=== PATIENT | male | born 1970 | race African-American/Black ===

== ENCOUNTER 2019-01-28 05:55 | Inpatient (IN) | payer OTHER ==
[2019-01-24 16:51] VITALS: BMI 37.7
[2019-01-28] MEDS ORDERED: CEFAZOLIN 3 GM in DEXTROSE 5%-WATER 100 ML IVPB ONE (06:27)
[2019-01-28] MEDS ORDERED: ROPIVICAINE 0.2%/MORPH PF/KETOROLAC - 51ML DISP.SYRINGE IA ONE ×2 (06:28→10:44)
[2019-01-28] MEDS ORDERED: TRANEXAMIC ACID 1000 MG/10 ML VIAL IVPUSH ONE (06:28)
[2019-01-28] MEDS ORDERED: DEXAMETHASONE SOD PHOSPHATE/PF 10 MG/ML SDV ONE (06:48)
[2019-01-28] MEDS ORDERED: BUPIVACAINE HCL/PF (5 MG/ML) 30 ML VIAL IJ ONE (06:48)
[2019-01-28] MEDS ORDERED: MIDAZOLAM HCL 2 MG/2 ML SINGLE DOSE VIAL ONE ×3 (06:48→09:09)
[2019-01-28] MEDS ORDERED: ePHEDrine SULFATE 50 MG/1 ML AMPULE ONE (06:55)
[2019-01-28] MEDS ORDERED: SUCCINYLCHOLINE CHLORIDE 200 MG/10 ML VIAL ONE (06:56)
[2019-01-28] MEDS ORDERED: PROPOFOL 20 ML ONE ×4 (06:56)
[2019-01-28] MEDS ORDERED: BUPIVACAINE HCL/PF 0.5% (5MG/ML) 10 ML VIAL ONE (06:59)
[2019-01-28] MEDS: oxyCODONE HCL 10 MG SUSTAINED ACTING TABLET PO ONE (07:10)
[2019-01-28] MEDS: CELECOXIB 200 MG CAPSULE PO ONE (07:10)
[2019-01-28] MEDS: GABAPENTIN 300 MG CAPSULE (FP) PO ONE (07:10)
[2019-01-28] MEDS: PANTOPRAZOLE 40 MG TABLET (FP) PO ONE (07:10)
[2019-01-28] MEDS ORDERED: VANCOMYCIN 1,000 MG VIAL (RESTRICTED TO ID ONLY) ONE (07:29)
[2019-01-28] MEDS ORDERED: ceFAZolin SODIUM 1 GM VIAL ONE (07:29)
--- NOTE | 2019-01-28 07:39 | HP ---
Admitting History and Physical - Admission Chief Complaint: left hip osteoarthritis x years History of Present Illness: 48 year old male presents in regard to his left hip. Longstanding history of left hip osteoarthritis. Patient complains of pain, limited ROM, difficulty ambulating and difficulty completing ADLs. Patient has failed conservative treatment measures including PO medications, injections, exercise programs and activity modification. At this point, patient wishes to proceed with surgical intervention, a left total hip arthroplasty - MAKOplasty. History Source: Patient - Past Medical History Cardiovascular: Yes: HTN ENT: Yes: Other (Hay fever) - Past Surgical History Additional Past Surgical History: See written history & physical. - Smoking History Smoking history: Former smoker Have you smoked in the past 12 months: No If you are a former smoker, when did you quit?: 2005 - Alcohol/Substance Use Hx Alcohol Use: Yes (OCCASIONALLY) Home Medications - Allergies Allergies/Adverse Reactions: Allergies Allergy/AdvReac Type Severity Reaction Status Date / Time No Known Allergies Allergy Verified 01/24/19 16:38 - Home Medications Home Medications: Ambulatory Orders Amlodipine Besylate 10 mg PO DAILY 01/24/19 Lisinopril [Zestril] 40 mg PO DAILY 01/24/19 Multivitamin/Iron/Folic Acid [Centrum Adults Tablet] 1 each PO DAILY 01/24/19 Montelukast Na [Singulair -] 10 mg PO DAILY 01/28/19 Review of Systems - Review of Systems Musculoskeletal: reports: Decreased ROM (left hip), Joint Pain (left hip) Physical Examination Vital Signs: Vital Signs Temperature 98.1 F 01/28/19 06:52 Pulse Rate 70 01/28/19 06:52 Respiratory Rate 18 01/28/19 06:52 Blood Pressure 144/88 01/28/19 06:52 O2 Sat by Pulse Oximetry (%) 97 01/28/19 07:18 Constitutional: Yes: Well Nourished, No Distress Eyes: Yes: Conjunctiva Clear HENT: Yes: Atraumatic, Normocephalic Neck: Yes: Supple Cardiovascular: Yes: Regular Rate and Rhythm Respiratory: Yes: Regular Gastrointestinal: Yes: Soft ...Rectal Exam: Yes: Deferred Musculoskeletal: Yes: Joint Stiffness (left hip) Assessment/Plan 48 year old male presents in regard to his left hip. Longstanding history of left hip osteoarthritis. Patient complains of pain, limited ROM, difficulty ambulating and difficulty completing ADLs. Patient has failed conservative treatment measures including PO medications, injections, exercise programs and activity modification. At this point, patient wishes to proceed with surgical intervention, a left total hip arthroplasty - MAKOplasty. Pros, cons, risks benefits and alternatives of a left total hip arthroplasty, MAKOplasty were discussed with the patient at length. Patient confirms their understanding and consents to proceed with a left total hip arthroplasty, MAKOplasty.
[2019-01-28] MEDS ORDERED: KETAMINE HCL 200 MG/20 ML VIAL ONE (09:12)
[2019-01-28] MEDS ORDERED: ONDANSETRON 4 MG/2 ML VIAL IVPUSH PRN ×2 (10:38→12:35)
[2019-01-28] MEDS ORDERED: oxyCODONE HCL 5 MG TABLET PO PRN ×2 (10:41)
[2019-01-28] MEDS ORDERED: TRANEXAMIC ACID 1000 MG/10 ML VIAL IVPB ONE (10:44)
[2019-01-28] MEDS ORDERED: VANCOMYCIN 1,000 MG VIAL (RESTRICTED TO ID ONLY) IVPB ONE (10:45)
[2019-01-28] MEDS ORDERED: TRANEXAMIC ACID 1000 MG/10 ML VIAL ONE (11:43)
[2019-01-28] MEDS ORDERED: DEXAMETHASONE SOD PHOSPHATE 4 MG/1 ML VIAL ONE (11:43)
[2019-01-28] MEDS ORDERED: ONDANSETRON 4 MG/2 ML VIAL ONE (11:43)
--- NOTE | 2019-01-28 12:30 | OP ---
Operative Note - Note: Pre-Operative Diagnosis: Left hip OA Operation: left RIKKI TADEO Post-Operative Diagnosis: Same as Pre-op Surgeon: Ramy Lindsey Crepe Box Tender: Vernell Cummins Anesthesia: Spinal Estimated Blood Loss (mls): 200
[2019-01-28] MEDS ORDERED: KETOROLAC TROMETHAMINE 30 MG/1 ML VIAL ONE (12:31)
[2019-01-28] MEDS ORDERED: traMADol HCL 50 MG TABLET ONE (12:31)
[2019-01-28] MEDS ORDERED: ACETAMINOPHEN INJECTION 100 ML IVPB ONE (12:32)
[2019-01-28] MEDS ORDERED: MAG HYDROX/AL HYDROX/SIMETH 30 ML UNIT-DOSE CUP PO PRN (12:35)
[2019-01-28] MEDS ORDERED: MAGNESIUM HYDROX 2400MG/30ML ORAL SUSPENSION 30 ML CUP PO PRN (12:35)
[2019-01-28] MEDS: ACETAMINOPHEN 1000 MG/100 ML VIAL (NON FORMULARY) IVPB ONE (12:41)
[2019-01-28] MEDS ORDERED: LACTATED RINGERS SOLUTION 1,000 ML IV SCH (12:45)
[2019-01-28] MEDS: traMADol HCL 50 MG TABLET PO SCH ×3 (12:46→18:25)
[2019-01-28] MEDS: KETOROLAC TROMETHAMINE 30 MG/1 ML VIAL IVPUSH SCH ×3 (12:50→18:28)
[2019-01-28] MEDS: CEFAZOLIN 2 GM/D5W 2 GM/50 ML ML IVPB SCH (17:19)
[2019-01-28] MEDS: ACETAMINOPHEN 325 MG TABLET (FP) PO SCH ×3 (18:21→23:21)
[2019-01-28] MEDS ORDERED: DEXAMETHASONE SOD PHOSPHATE 10 MG/1 ML VIAL IVPB ONE (20:00)
[2019-01-28] MEDS: SENNOSIDES/DOCUSATE COMBO (SENNA PLUS) TABLET (UD) PO SCH (21:28)
[2019-01-28] MEDS: CELECOXIB 200 MG CAPSULE PO SCH (21:28)
[2019-01-28] MEDS: ASCORBIC ACID 500 MG TABLET (FP) PO SCH (21:28)
[2019-01-28] MEDS: GABAPENTIN 300 MG CAPSULE (FP) PO SCH (21:28)
[2019-01-28] MEDS: oxyCODONE HCL 10 MG SUSTAINED ACTING TABLET PO SCH (21:28)
[2019-01-29] MEDS: traMADol HCL 50 MG TABLET PO SCH ×6 (00:15→23:50)
[2019-01-29] MEDS: KETOROLAC TROMETHAMINE 30 MG/1 ML VIAL IVPUSH SCH ×3 (00:16→08:00)
[2019-01-29] MEDS: CEFAZOLIN 2 GM/D5W 2 GM/50 ML ML IVPB SCH (01:58)
[2019-01-29] MEDS: ACETAMINOPHEN 325 MG TABLET (FP) PO SCH ×5 (06:25→23:49)
[2019-01-29] MEDS: CELECOXIB 200 MG CAPSULE PO ONE (07:58)
[2019-01-29] MEDS: GABAPENTIN 300 MG CAPSULE (FP) PO ONE (07:58)
[2019-01-29] MEDS: oxyCODONE HCL 10 MG SUSTAINED ACTING TABLET PO ONE (07:58)
[2019-01-29] MEDS: LACTATED RINGERS SOLUTION 1,000 ML IV SCH ×2 (07:59→12:26)
[2019-01-29] MEDS: PANTOPRAZOLE 40 MG TABLET (FP) PO ONE (07:59)
[2019-01-29] MEDS: ACETAMINOPHEN 1000 MG/100 ML VIAL (NON FORMULARY) IVPB ONE (08:00)
[2019-01-29] MEDS: ASPIRIN 325 MG TABLET PO SCH (08:50)
[2019-01-29 09:03] LABS: CALCIUM 8.6 mg/dl (8.5-10); POTASSIUM 3.8 mmol/L (3.5-5.1)
[2019-01-29] MEDS: CELECOXIB 200 MG CAPSULE PO SCH ×2 (09:57→21:35)
[2019-01-29] MEDS: GABAPENTIN 300 MG CAPSULE (FP) PO SCH ×2 (09:58→21:35)
[2019-01-29] MEDS: MULTIVITAMINS (DAILY MVI) TABLET (FP) PO SCH (09:58)
[2019-01-29] MEDS: ASCORBIC ACID 500 MG TABLET (FP) PO SCH ×2 (09:58→21:39)
[2019-01-29] MEDS: PANTOPRAZOLE 40 MG TABLET (FP) PO SCH (09:58)
[2019-01-29] MEDS: MONTELUKAST NA 10 MG TABLET PO SCH (09:59)
[2019-01-29] MEDS: SENNOSIDES/DOCUSATE COMBO (SENNA PLUS) TABLET (UD) PO SCH ×2 (09:59→21:39)
[2019-01-29] MEDS: oxyCODONE HCL 10 MG SUSTAINED ACTING TABLET PO SCH ×2 (10:01→21:35)
[2019-01-29] MEDS: amLODIPine BESYLATE 10 MG TABLET (FP) PO SCH (10:03)
[2019-01-29] MEDS: LISINOPRIL 20 MG TABLET (FP) PO SCH (10:04)
[2019-01-29 10:15] LABS: HEMOGLOBIN 11.8 GM/dL (11.7-16.9); MCH 30.4 pg (25.7-33.7); MCHC 32.8 g/dl (32.0-35.9); MEAN CELL VOLUME 92.7 fl (80-96); MEAN PLT VOLUME 8.4 fl (7.5-11.1); PLATELET COUNT 278 K/MM3 (134-434); RBC 3.89 M/mm3 (4.00-5.60); RDW 14.1 % (11.9-15.9); WHITE BLOOD COUNT 14.2 K/mm3 (4.0-10.0)
--- NOTE | 2019-01-29 15:08 | PN ---
Progress Note, Physician Chief Complaint: s/p left TADEO RIKKI under spinal anesthesia History of Present Illness: post op day one paravertebral block for post op pain control - Current Medication List Current Medications: Active Medications Acetaminophen (Tylenol -) 650 mg PO Q6H [facility] Stop: 01/31/19 11:59 Last Admin: 01/29/19 12:25 Dose: 650 mg Al Hydroxide/Mg Hydroxide (Mylanta Oral Suspension -) 30 ml PO Q4H PRN PRN Reason: DYSPEPSIA Amlodipine Besylate (Norvasc -) 10 mg PO DAILY [facility] Last Admin: 01/29/19 10:03 Dose: 10 mg Ascorbic Acid (Vitamin C -) 500 mg PO BID [facility] Last Admin: 01/29/19 09:58 Dose: 500 mg Aspirin (Asa -) 325 mg PO DAILY@0800 [facility] Last Admin: 01/29/19 08:50 Dose: 325 mg Celecoxib (Celebrex -) 200 mg PO BID [facility] Last Admin: 01/29/19 09:57 Dose: 200 mg Gabapentin (Neurontin -) 300 mg PO BID [facility] Stop: 01/31/19 21:59 Last Admin: 01/29/19 09:58 Dose: 300 mg Lactated Ringer's (Lactated Ringers Solution) 1,000 mls @ 125 mls/hr IV ASDIR [facility] Last Admin: 01/29/19 12:26 Dose: Not Given Lisinopril (Prinivil) 40 mg PO DAILY [facility] Last Admin: 01/29/19 10:04 Dose: 40 mg Magnesium Hydroxide (Milk Of Magnesia -) 30 ml PO PRN PRN PRN Reason: CONSTIPATION Montelukast Sodium (Singulair -) 10 mg PO DAILY [facility] Last Admin: 01/29/19 09:59 Dose: 10 mg Multivitamins/Minerals/Vitamin C (Tab-A-Vit -) 1 tab PO DAILY [facility] Last Admin: 01/29/19 09:58 Dose: 1 tab Ondansetron HCl (Zofran Injection) 4 mg IVPUSH Q6H PRN PRN Reason: NAUSEA Oxycodone HCl (Roxicodone -) 5 mg PO Q3H PRN PRN Reason: PAIN LEVEL 1-5 Last Admin: 01/28/19 14:48 Dose: 5 mg Oxycodone HCl (Roxicodone -) 10 mg PO Q3H PRN PRN Reason: PAIN LEVEL 6-10 Last Admin: 01/29/19 09:59 Dose: 10 mg Oxycodone HCl (Oxycontin -) 10 mg PO BID [facility] Stop: 01/31/19 10:42 Last Admin: 01/29/19 10:01 Dose: 10 mg Pantoprazole Sodium (Protonix -) 40 mg PO DAILY [facility] Last Admin: 01/29/19 09:58 Dose: 40 mg Senna/Docusate Sodium (Pericolace -) 2 tablet PO BID [facility] Last Admin: 01/29/19 09:59 Dose: 2 tablet Tramadol HCl (Ultram -) 50 mg PO Q6H [facility] Last Admin: 01/29/19 13:10 Dose: 50 mg - Objective Vital Signs: Vital Signs Temperature 97.6 F 01/29/19 14:08 Pulse Rate 74 01/29/19 14:08 Respiratory Rate 18 01/29/19 14:08 Blood Pressure 134/76 01/29/19 14:08 O2 Sat by Pulse Oximetry (%) 93 L 01/29/19 14:08 Constitutional: Yes: Well Nourished Cardiovascular: Yes: WNL Respiratory: Yes: WNL Gastrointestinal: Yes: WNL Labs: CBC, BMP 01/29/19 07:50 01/29/19 07:50 Assessment/Plan No adverse anesthetic complications, no nausea or vomiting, pain controlled. dept of anesthesia will sign off care at this time
--- NOTE | 2019-01-30 00:01 | PN ---
Progress Note (short form) - Note Progress Note: Pt seen and examined. Doing well. AVSS Selected Entries 01/29/19 01/29/19 01/29/19 18:00 20:57 21:01 Temperature 97.6 F 98.4 F Pulse Rate 82 76 Respiratory 18 16 Rate Blood Pressure 142/82 130/75 O2 Sat by Pulse 99 Oximetry (%) Oxygen Delivery Room Air Method Laboratory Tests 01/29/19 01/29/19 07:50 07:50 WBC 14.2 H Hgb 11.8 Hct 36.0 Plt Count 278 Sodium 133 L Potassium 3.8 Chloride 99 Carbon Dioxide 22 Anion Gap 12 BUN 15 Creatinine 1.0 Est GFR (CKD-EPI)NonAf 87.99 Random Glucose 181 H Calcium 8.6 Gen: NAD LLE: c/d/i, NVID A/P 48yo male POD #1 s/p L TADEO PT/OOB D/C home in AM
--- NOTE | 2019-01-30 00:06 | DS ---
Physical Examination Vital Signs: Vital Signs Temperature 98.4 F 01/29/19 21:01 Pulse Rate 76 01/29/19 21:01 Respiratory Rate 16 01/29/19 21:01 Blood Pressure 130/75 01/29/19 21:01 O2 Sat by Pulse Oximetry (%) 99 01/29/19 20:57 Labs: CBC, BMP 01/29/19 07:50 01/29/19 07:50 Discharge Summary Reason For Visit: OSTEOARTHRITIS LEFT HIP Current Active Problems Osteoarthritis of left hip (Acute) Procedures: Principal: Left RIKKI TADEO Hospital Course: Admitted for elective surgery. Procedure performed without complications. Pt received postoperative antibiotic prophylaxis and DVT ppx. Ambulated with physical therapy. Stable for discharge home with outpatient followup. Condition: Stable - Instructions Diet, Activity, Other Instructions: Dr Lindsey - Hip Replacement Instructions Keep the Aquacel dressing on until removed by Dr. Lindsey in 10-14 days - it is antibacterial and waterproof and you can shower with it on. Call the office for a follow-up appointment with Dr. Lindsey in 10-14 days. [phone] Take one Aspirin 325mg daily for 6 weeks to prevent blood clots in your legs. Take one Pantoprazole 40mg daily for 6 weeks to protect against heartburn and ulcers. Take Cephalexin (antibiotic) 3x/day for 10 days to help prevent skin infection. Take Celebrex 200mg twice daily for 30 days to reduce swelling and inflammation. Take a multivitamin, stool softener and extra Vitamin C supplement daily. For pain: *Mild pain (1-3/10): Take 1 Tramadol tablet every 4 hours as needed. Moderate pain (4-6/10): Take 1 Tramadol tablet and 1 Percocet tablet every 4 hours as needed. Severe pain (7-10/10): Take 1 Tramadol tablet and 2 Percocet tablets every 4 hours as needed. Activity: You can put as much weight on the operative leg as you want. DO NOT turn the left leg counter-clockwise (external rotation) past 45 degrees ( roughly 10:00 on a clock) for 6 weeks until the deep tissues are healed. When sitting in a chair, make sure your knees are pointed straight ahead for the first 6 weeks. After 6 weeks you will have no restrictions. For the first 6 weeks, all you need to do is walk around the house, go up/down stairs, and sit down/get up. After 6 weeks when everything is healed (and bone has grown into the implant) you will be sent for more intensive outpatient physical therapy. Always use a walker or cane for balance and to prevent falls. Expect to see swelling / bruising from the operative site all the way down to your toes. Wear the Compression stocking on the operative side during the day to minimize how much swelling there is in your foot/ankle. Don't wear the stocking at night. You don't have to wear the stocking on the other side. Disposition: VNS/HOME HEALTH CARE - Home Medications Comprehensive Discharge Medication List: Ambulatory Orders Amlodipine Besylate 10 mg PO DAILY 01/24/19 Lisinopril [Zestril] 40 mg PO DAILY 01/24/19 Multivitamin/Iron/Folic Acid [Centrum Adults Tablet] 1 each PO DAILY 01/24/19 Montelukast Na [Singulair -] 10 mg PO DAILY 01/28/19 Ascorbic Acid [Vitamin C -] 500 mg PO BID tablet 01/30/19 Aspirin [ASA -] 325 mg PO DAILY@0800 tablet 01/30/19 Celecoxib [CeleBREX -] 200 mg PO BID #60 capsule 01/30/19 Cephalexin Monohydrate [Keflex -] 500 mg PO TID #30 capsule 01/30/19 Oxycodone HCl/Acetaminophen [Percocet 5-325 mg Tablet] 1 - 2 tab PO Q4H PRN #60 tablet MDD 10 01/30/19 Pantoprazole Sodium [Protonix -] 40 mg PO DAILY #40 tablet.ec 01/30/19 Sennosides/Docusate Sodium [Pericolace -] 2 tablet PO BID tablet 01/30/19 traMADol HCL [Ultram -] 50 mg PO Q4H PRN #42 tablet MDD 6 01/30/19
[2019-01-30] MEDS: traMADol HCL 50 MG TABLET PO SCH ×2 (06:52→12:43)
[2019-01-30] MEDS: ACETAMINOPHEN 325 MG TABLET (FP) PO SCH ×2 (06:53→11:36)
[2019-01-30] MEDS: ASPIRIN 325 MG TABLET PO SCH (07:58)
[2019-01-30 08:31] LABS: HEMATOCRIT 31.5 % (35.4-49); HEMOGLOBIN 10.5 GM/dl (11.7-16.9); MCH 30.9 pg (25.7-33.7); MCHC 33.2 g/dl (32.0-35.9); MEAN CELL VOLUME 93.2 fl (80-96); MEAN PLT VOLUME 8.3 fl (7.5-11.1); PLATELET COUNT 277 K/MM3 (134-434); RBC 3.38 M/mm3 (4.00-5.60); RDW 13.6 % (11.9-15.9); WHITE BLOOD COUNT 10.1 K/mm3 (4.0-10.8)
[2019-01-30] MEDS: GABAPENTIN 300 MG CAPSULE (FP) PO SCH (09:34)
[2019-01-30] MEDS: MONTELUKAST NA 10 MG TABLET PO SCH (09:34)
[2019-01-30] MEDS: MULTIVITAMINS (DAILY MVI) TABLET (FP) PO SCH (09:37)
[2019-01-30] MEDS: CELECOXIB 200 MG CAPSULE PO SCH (09:37)
[2019-01-30] MEDS: ASCORBIC ACID 500 MG TABLET (FP) PO SCH (09:37)
[2019-01-30] MEDS: LISINOPRIL 20 MG TABLET (FP) PO SCH (09:37)
[2019-01-30] MEDS: PANTOPRAZOLE 40 MG TABLET (FP) PO SCH (09:37)
[2019-01-30] MEDS: SENNOSIDES/DOCUSATE COMBO (SENNA PLUS) TABLET (UD) PO SCH (09:37)
[2019-01-30] MEDS: oxyCODONE HCL 10 MG SUSTAINED ACTING TABLET PO SCH (09:37)
[2019-01-30 09:45] VITALS: TEMP 98.3
[2019-01-30] MEDS: amLODIPine BESYLATE 10 MG TABLET (FP) PO SCH (09:55)
[2019-01-30 11:47] VITALS: BP 122/65; PULSE 75
[2019-01-30] MEDS: LACTATED RINGERS SOLUTION 1,000 ML IV SCH (11:48)
--- NOTE | 2019-01-30 15:16 | PATH ---
Surgical Pathology Report Patient Name: ENZO BAUGH Med. Rec. #: [id number] /Age/Gender: 1970 (Age: 48) / M Account: [id number] Location: [facility] MED-SURG Taken: 01/28/2019 Received: 01/28/2019 Reported: 01/30/2019 Physicians: Ramy Lindsey M.D. Specimen(s) Received LEFT FEMORAL HEAD Clinical History Osteoarthritis left hip Final Diagnosis BONE, FEMORAL HEAD, LEFT, TOTAL HIP REPLACEMENT MAKOPASTY: BONE WITH DEGENERATIVE JOINT DISEASE. Electronically Signed Aure Rasheed M.D. Gross Description Received in formalin, labeled "left femoral head," is a 4.7 x 4.7 x 4.2 cm. femoral head with a 1.2 cm in length portion of femoral neck attached. The margin of resection is smooth. There is a 3.7 cm in greatest dimension area of eburnation present. The remaining articular surface is hilton-yellow and diffusely nodular and granular. The underlying trabecular bone is yellow and hard. A inbound call center representative section is submitted in one cassette, following decalcification. /01/29/2019 [facility]01/29/2019
--- NOTE | 2019-03-06 00:42 | OP ---
DATE OF OPERATION: 01/28/2019 PREOPERATIVE DIAGNOSIS: Left hip osteoarthritis. POSTOPERATIVE DIAGNOSIS: Left hip osteoarthritis. PROCEDURE: Left total hip replacement with Makoplasty robotic navigation. ATTENDING: Ayla Forbes M.D. PIT HAND: Alexa Hartman ANESTHESIA: Spinal plus sedation. ESTIMATED BLOOD LOSS: 200 mL. COMPLICATIONS: None. DISPOSITION: The patient was transferred to the PACU in stable condition. IMPLANTS USED: Fred Accolade 2 size 5 femoral component, Fred Trident 2 52-mm acetabular component with 40-mm and 15-mm acetabular screws, MDM bipolar head ball and liner with inner ceramic plus 4 mm offset ball. INDICATION: This is a 48-year-old male who presented to the office complaining of severe left hip pain. He was seen and examined by Dr. Forbes, diagnosed with severe left hip osteoarthritis. The patient was initially treated nonoperatively with injection of medications and physical therapy, but continued to have severe pain and ambulatory dysfunction; he was therefore indicated for a left total hip replacement. The risks, benefits, and alternatives of the procedure were explained to the patient in great detail, and he elected to proceed with the surgery. On the day of surgery, the patient was taken to the operating room and placed on the OR table. Spinal anesthesia was administered by the anesthesiologist. The patient was then positioned in the lateral decubitus position on the table and all bony prominences were padded. An axillary roll was placed. The operative hip was then prepped and draped in the usual sterile fashion and intravenous antibiotics were given for infection prophylaxis. A surgical time-out was then performed with the team, and the patients identity, procedure, side, availability of implants, and the administration of antibiotics were confirmed. An approximately 15-cm longitudinal incision was made through the skin centered on the greater trochanter of the hip. This dissection was carried down through the subcutaneous tissues to the deep fascia. This fascia was then incised and a Cobra was placed around the inferior femoral neck. Electrocautery was used to reflect the anterior 40% of the gluteus medius and minimus starting at the musculotendinous junction and leaving a cuff for closure. This was reflected to reveal the capsule of the hip joint. An anterior capsulectomy was performed and the femoral head and neck were visualized. Grade 4 changes were noted diffusely throughout the joint. At this point, three small stab incisions were made superior to the main incision along the iliac crest. Three self-drilling Steinmann pins were then placed and the Pixeon pelvic array was attached. Reference points on the limb were then entered into the robotic device and the limb length deficiency, offset, and femoral neck resection level were then calculated by the software. The hip was then dislocated with traction and external rotation. An oscillating saw was used to make the femoral neck cut at the level previously templated, and the femoral head was removed. Attention was then turned to the acetabulum. Retractors were then placed around the acetabulum and the labrum was removed. An acetabular checkpoint pin and the Pixeon software were used to register the contours of the acetabulum. The acetabulum was then reamed in a single stage to the preoperatively templated size using the Sarabjit robotic arm. The appropriately sized cup was then impacted and had solid fixation as well as the preset inclination and version of 40 and 20 degrees, respectively. A polyethylene liner was then placed in the cup. Attention was then turned back to the femur, which was externally rotated for improved visualization. A femoral neck elevator was used to present the femoral neck cut, a box osteotome was used to enter the femoral canal, and a canal finder was used to go down the femoral shaft. The Sarabjit broaches were used sequentially until the optimal scratch fit was achieved. This correlated with the preoperatively templated size. From here, several different offset head and neck configurations were tested until excellent stability and length were obtained. These measurements were quantified using the Pixeon software. All trial components were then removed, the femur was copiously irrigated, and the final components were placed. Leg length and stability were checked again and found to be excellent. Irrigation was performed again. Wound closure was started by repairing the abductor muscles with a no. 2 FiberWire stitch in a Krackow configuration passed through bone tunnels in the greater trochanter and tied over a bony bridge. This repair was then reinforced with a 0 V-Loc 180 barbed suture. Next, no. 1 Polysorb and 0 V-Loc 180 were used to close the fascia. The deep subcutaneous tissue was closed with no. 1 Polysorb sutures, and 2-0 Polysorb was used for the superficial subcutaneous tissue. The skin was closed using both 3-0 V-Loc 90 suture in a running subcuticular fashion and SwiftSet skin adhesive. The Sarabjit array and pins were removed from the iliac crest and the stab incision sites were irrigated and closed with 4-0 Polysorb sutures and SwiftSet skin adhesive. Once this was completed, a sterile dressing was applied. The patient was then awakened and taken to the PACU in stable condition. ADDENDUM: After final implants were placed, a 3-minute dilute Betadine lavage was performed as per the STEEDMAN protocol. Following this, the wound was thoroughly irrigated with normal saline via pulsatile lavage, and wound closure was begun. AYLA FORBES M.D. [id number]
== END 2019-01-30 15:20 | disposition home health service (06) | DRG 470 ==
LOC: FM/S 05:55
PROVIDERS: ADMIT Student in an Organized Health Care Education/Training Program; ATTEND Student in an Organized Health Care Education/Training Program
PROC: 8E0Y0CZ Robotic Assisted Procedure of Lower Extremity, Open Approach (ICD-10-PCS; 2019-01-28)
PROC: 0SRB0JZ Replacement of Left Hip Joint with Synthetic Substitute, Open Approach (ICD-10-PCS; principal; 2019-01-28 09:20)
DX: M16.12 Unilateral primary osteoarthritis, left hip (principal); I10 Essential (primary) hypertension
CPT/HCPCS: 36415; 73502-TC-LT-FY; 80048; 85027; 88304-TC; 88311-TC; 94660; 94760; 97116-GP; 97163-GP; J0131; J1100